=== PATIENT | male | born 1960 | race Caucasian/White ===

== ENCOUNTER 2024-12-20 06:02 | Day surgery (SDC) | payer OTHER, SELFPAY ==
[2024-12-20 10:24] VITALS: BMI 29.7
[2024-12-20 10:26] VITALS: BMI 29.7
[2024-12-20 10:27] VITALS: BP 137/91
[2024-12-20 13:30] VITALS: BP 128/87
[2024-12-20 13:45] VITALS: BP 129/86
[2024-12-20 13:53] VITALS: BP 136/81
[2024-12-20 14:00] VITALS: BP 136/81
== END 2024-12-20 14:15 | disposition home or self-care (01) ==
LOC: GI 06:02
PROVIDERS: ATTENDING PHYSICIAN Internal Medicine Gastroenterology
DX: R10.84 Generalized abdominal pain (principal); K31.7 Polyp of stomach and duodenum; K22.89 Other specified disease of esophagus; K31.89 Other diseases of stomach and duodenum; K20.90 Esophagitis, unspecified without bleeding; K86.9 Disease of pancreas, unspecified; K86.89 Other specified diseases of pancreas
CPT/HCPCS: 43251; 43237; 88305

== ENCOUNTER → 2025-02-18 10:19 | Outpatient (REF) | payer OTHER, SELFPAY | LOC: RAD 10:19 | PROVIDERS: ATTENDING PHYSICIAN Family Medicine | DX: J15.7 Pneumonia due to Mycoplasma pneumoniae (principal) | CPT/HCPCS: 71046 ==

== ENCOUNTER 2025-08-14 10:07 | Emergency (ER) | payer OTHER, SELFPAY ==
[2025-08-14 10:07] VITALS: BMI 29.8
[2025-08-14 10:08] VITALS: BP 155/110
[2025-08-14 11:17] VITALS: BP 142/98
[2025-08-14 11:43] LABS: Hematocrit 42.4 % (39.0-52.0); Hemoglobin 14.2 g/dL (13.0-18.0); Mean Corp Hgb Conc. 33.5 g/dL (33.0-37.0); Mean Corpuscular Volume 89.3 fL (80.0-94.0); Platelet Count 310 10^3/uL (130-400); Red Cell Dist. Width 13.6 % (11.5-14.5)
[2025-08-14 11:56] LABS: ALT (SGPT) 192 U/L (0-50); AST (SGOT) 90 U/L (17-59); Albumin 3.9 g/dl (3.5-5.0); Alkaline Phosphatase 268 U/L (38-126); Blood Urea Nitrogen 18 mg/dl (9-20); Calcium 9.2 mg/dl (8.4-10.2); Carbon Dioxide 30 mmol/L (22-30); Chloride 102 mmol/L (98-107); Estimated Creatinine Clearance 102 ml/min; Glucose 99 mg/dl (70-99); Lipase 59 U/L (23-300); Potassium 4.6 mmol/L (3.5-5.1); Sodium 135 mmol/L (135-145); Total Protein 6.9 g/dl (6.3-8.2); eGFR > 60.00
[2025-08-14 12:10] VITALS: BP 139/93
[2025-08-14 12:28] LABS: Urine Character Clear (Clear)
[2025-08-14 12:39] LABS: Nucleated Red Blood Cells % 0 % (-)
[2025-08-14 13:03] LABS: Urine Red Blood Cell 0-2 /HPF (0-2); Urine Squamous Cell 0-2 /LPF (Few); Urine White Cell 0-2 /HPF (0-5)
[2025-08-14] MEDS: TORADOL 15 MG IV (13:56)
[2025-08-14 13:59] VITALS: BP 123/87
--- NOTE | 2025-08-14 15:05 | ED.GENMED ---
History of Present Illness
General
Chief Complaint: Abdominal Symptoms
Time Seen by Provider: 08/14/25 10:40
History of Present Illness
History of Present Illness:
64-year-old male presents the emergency department for evaluation of fever and lower abdominal pain for the past week. Was started earlier this week by his primary care physician on levofloxacin with no improvement. He does note that his pain is
persistent but his rigors have improved. No diarrhea or vomiting. Also reports intermittent upper abdominal pain for the past 3 months particular worse after eating. No current nausea or vomiting. No ill contacts at home.
Past History
Past History
ED Past Medical History: None
ED Past Surgical History: Tonsilectomy
Social History
Tobacco: Non-smoker
Alcohol: None
Drug: None
Personal:
Living: with family
Review of Systems
Review of Systems
Allergies reviewed?: Yes
All Other Systems: ROS reviewed and negative except as documented in HPI and ROS
Phy Exam
Physical Exam
Physical Exam:
GEN: Well appearing, NAD, WDWN
HEENT: Oral mucosa moist, no scleral icterus
Cardiac: Regular rate
Lung: No respiratory distress, no tachypnea
Abdomen: Soft, moderate right lower quadrant tenderness, no rigidity or peritoneal signs
MSK: No gross deformity or injuries
Skin: Good color, no pallor or jaundice, no rashes
Neuro: AO x3, moves all extremities freely
Psych: Calm, cooperative
Course
Orders/Labs/Results
Orders:
Orders
08/14/25 11:19
Complete Blood Count/With Diff Urgent
Comprehensive Metabolic Panel Urgent
Lipase Urgent
08/14/25 12:05
US Abdomen Complete/Upper Urgent
Comment:
Reason For Exam: R abd pain, transaminitis, fever
08/14/25 12:17
Urinalysis Reflex To Culture Urgent
Date Specimen was Collected: 08/14/25
Time Specimen was Collected: 12:16
Urine Microscopic Reflex Cult Urgent
08/14/25 13:39
CT Abd/Pel (IV only)-DH only Urgent
Comment:
Reason For Exam: abd pain, fever
08/14/25 13:45
Ketorolac [Toradol] 15 mg IV NOW STA
Abnormal Lab Results
08/14/25 08/14/25
11:19 12:17
WBC 11.0 H 10^3/uL
(4.8-10.8)
Abs Immat Gran (auto) 0.3 H 10^3/uL
(0-0.05)
Absolute Neuts (auto) 6.6 H 10^3/uL
(1.4-6.5)
Absolute Monos (auto) 1.1 H 10^3/uL
(0.1-0.6)
Immature Gran % 2.7 H %
(0-0.5)
Monocytes % 9.9 H %
(1.7-9.3)
AST 90 H U/L
(17-59)
ALT 192 H U/L
(0-50)
Alkaline Phosphatase 268 H U/L
(38-126)
Ur Occult Blood Reflex 1+ A
(Negative)
Urine Bacteria (Reflex) Few A
(Negative)
Urine Albumin (Reflex) 1+ A
(Neg - Trace)
08/14/25 11:19
08/14/25 11:19
Vital Signs
Initial and Last Documented VS:
Initial Vital Signs
Temp Pulse Resp BP Pulse Ox
98.8 F 95 16 155/110 99
08/14/25 10:08 08/14/25 10:08 08/14/25 10:08 08/14/25 10:08 08/14/25 10:08
Last Documented Vital Signs
Temp Pulse Resp BP Pulse Ox
97.8 F 82 18 123/87 100
08/14/25 13:59 08/14/25 13:59 08/14/25 13:59 08/14/25 13:59 08/14/25 15:06
MDM/Problems Addressed
MDM/Problems Addressed:
Due to transaminitis and the patient's reports of postprandial upper abdominal pain and ultrasound was initially obtained to evaluate for cholecystitis but this was negative. Subsequently a CT scan was obtained showing diverticulitis is the
ultimate cause. Given that he is clinically stable we will place him on metronidazole in addition to his current levofloxacin with anticipation this will provide improvement. Counseled on clear liquid diet recommendations
*Pulse Oximetry
SaO2: 100
Oxygen Mode of Delivery: Room air
Patient hypoxic: no
*Critical Care Note
Total Time (30-74mins, 75-104mins- exclusive of procedures): Not Applicable
ED Attending Note
-
Portions of this chart may have been created with voice recognition software.� Occasional wrong word or��sound alike� substitutions may have occurred due to the inherent limitations of voice recognition software.
Discharge Plan
Departure
Patient Disposition: Home (Routine Discharge)
Date of Disposition: 08/14/25
Time of Disposition: 15:05
Patient with high blood pressure during this ER visit?: No
Discharge Problem:
Acute diverticulitis
Instructions: Diverticulitis (DC), Clear Liquid Diet
Prescriptions:
New
metronidazole 500 mg tablet
500 mg PO Q8H 10 Days Qty: 30 0RF
Referrals:
UNKNOWN - PT DOES,NOT KNOW [Family Provider]
Interventions
Interventions:
*Risk Screen - Suicide Last Done: 08/14/25 10:08
*General Assessment Last Done: 08/14/25 10:08
*Neglect/Abuse Screening Last Done: 08/14/25 10:08
*ED- Fall Risk Assessment Last Done: 08/14/25 11:05
*ED COVID-19 Vaccine History Last Done: 08/14/25 11:05
*ED Influenza Vaccine History Last Done: 08/14/25 11:05
*Nursing Disposition Last Done: 08/14/25 15:17
EZ-[id number] Assessment Last Done: 08/14/25 11:05
Discharge Date and Time
Print Language: GUINEAN
== END 2025-08-14 15:54 | disposition home or self-care (01) ==
LOC: EMR 10:07
PROVIDERS: Physician Assistant; EMERGENCY PHYSICIAN Student in an Organized Health Care Education/Training Program
DX: K57.32 Diverticulitis of large intestine without perforation or abscess without bleeding (principal)
CPT/HCPCS: 99284; 96374; 74177; 76700; 80053; 81003; 81015; 83690; 85025; Q9967